=== PATIENT | male | born 1985 | race Caucasian/White ===

== ENCOUNTER 2019-06-26 14:40 | Emergency (ER) | payer SELFPAY ==
[~2019-06-26] VITALS: Ht 175.3 cm; Wt 61.2 kg
[2019-06-26 14:42] VITALS: BP 146/80
--- NOTE | 2019-06-26 14:42 | NUR ---
PT BIBRA FROM STREET C/O BIZARRE BEHAVIOR AND METH USE. PT IS AAOX3, NOT IN RESPIRATORY DISTRESS ,V/S STABLE, KEPT RESTED AND COMFORTABLE, WILL CONTINUE TO MONITOR.
--- NOTE | 2019-06-26 15:27 | NUR ---
Patient given written and verbal discharge instructions. Patient verbalizes understanding of instructions. Patient is ambulatory with steady gait. Refuses offer of longterm placement. Patient given list of available shelters in surrounding area.
== END 2019-06-26 15:31 | disposition home or self-care (01) ==
LOC: ER 14:44
DX: R41.82 Altered mental status, unspecified (principal); Z59.0 Homelessness

== ENCOUNTER 2019-11-07 10:29 | Emergency (ER) | payer MEDICAID ==
[~2019-11-07] VITALS: Ht 182.9 cm; Wt 66.7 kg
--- NOTE | 2019-11-07 10:30 | NUR ---
PT BIB SELF C/O SI "I WANT TO RUN THRU TRAFFIC." PT IS AAOX3, NOT IN RESPIRATORY DISTRESS, V/S STABLE, KEPT RESTED AND COMFORTABLE. WILL CONTINUE TO MONITOR.
--- NOTE | 2019-11-07 10:36 | NUR ---
SEEN AND EXAMINED BY .
--- NOTE | 2019-11-07 10:37 | NUR ---
SITTER AT BEDSIDE.
--- NOTE | 2019-11-07 10:38 | NUR ---
URINE SPECIMEN COLLECTED AND SENT TO LAB.
--- NOTE | 2019-11-07 10:38 | NUR ---
called security for wanding
[2019-11-07 10:59] LABS: APPEARANCE,URINE Clear (CLEAR); BILIRUBIN,URINE Negative (NEGATIVE); BLOOD, URINE Negative Ery/uL (NEGATIVE); COLOR,URINE Yellow (YELLOW); KETONES,URINE Negative (NEGATIVE); LEUKOCYTE ESTERASE ,URINE Negative (NEGATIVE); NITRITE, URINE Negative (NEGATIVE); PH,URINE 5.5 (5.0-8.0); PROTEIN,URINE Negative (NEGATIVE); UGLUCOSE Negative (NEGATIVE); UROBILINOGEN,URINE 0.2 EU/dL (0.2)
[2019-11-07 11:00] LABS: BASOPHILS % (AUTO) 0.4 % (0.0-2.0); EOSINOPHILS % (AUTO) 2.1 % (0.0-6.0); HEMATOCRIT 38 % (39-51); HEMOGLOBIN 12.7 g/dL (13.5-17.5); LYMPHOCYTES # (AUTO) 1.8 /CMM (0.8-4.8); LYMPHOCYTES % (AUTO) 25.6 % (20.0-44.0); MEAN CORPUSCULAR HGB CONC 34 g/dl (31.0-36.0); MEAN CORPUSCULAR VOLUME 87 fL (80-96); MONOCYTES # (AUTO) 0.4 /CMM (0.1-1.30); MONOCYTES % (AUTO) 6.5 % (2.0-12.0); NEUTROPHILS # (AUTO) 4.5 /CMM (1.8-8.9); NEUTROPHILS % (AUTO) 65.4 % (43.0-81.0); PLATELET COUNT (AUTO) 247 /CMM (150-450); RED BLOOD CELL COUNT(AUTO) 4.31 MIL/uL (4.5-6.0); WHITE BLOOD COUNT (AUTO) 6.9 K/uL (4.3-11.0)
[2019-11-07 11:06] LABS: CALCIUM, SERUM 9.2 mg/dL (8.5-10.1); CARBON DIOXIDE 28 mmol/L (21-32); CHLORIDE 104 mmol/L (98-107); CREATININE 0.8 mg/dL (0.6-1.3); GLUCOSE 83 mg/dL (74-106); SODIUM SERUM 140 mmol/L (136-145); UREA NITROGEN, BLOOD 11 mg/dL (7-18)
[2019-11-07 11:11] LABS: ALANINE AMINOTRANSFERASE 23 U/L (12-78); ALBUMIN 4.3 g/dL (3.4-5.0); ALCOHOL, BLOOD < 3 mg/dL (0-0); ALKALINE PHOSPHATASE 74 U/L (46-116); ASPARTATE AMINOTRANSFERASE 12 U/L (15-37); BILIRUBIN,DIRECT 0.1 mg/dL (0.0-0.2); BILIRUBIN,TOTAL 0.3 mg/dL (0.2-1.0); TOTAL PROTEIN, SERUM 7.5 g/dL (6.4-8.2)
[2019-11-07 11:12] LABS: ACETAMINOPHEN < 2 ug/ml (10-30); SALICYLATE 2.7 mg/dL (2.8-20.0)
--- NOTE | 2019-11-07 11:39 | NUR ---
MARIO received a call from ED CRN Gener requesting voluntary psychiatric hospitalization for the pt. MARIO conducted chart review and called Eugene at [facility] to initiate voluntary hospitalization for the pt. MARIO faxed clinicals to [facility] intake dept.
--- NOTE | 2019-11-07 13:50 | NUR ---
PANTS BUSHELER reached out to Penny at [facility] intake for an update. Per Penny, pt has been accepted at [facility] [address] Lopez/Rahul. Number for report is [phone]. Per Penny, pt's temperature needs to be checked prior to giving report. ED has been updated.
--- NOTE | 2019-11-07 16:20 | NUR ---
[facility] CALLED. PROVIDED 1929 ETA.
--- NOTE | 2019-11-07 16:23 | NUR ---
REPORT GIVEN TO RAMA AT [facility]. AWAITING TRANSPORT AMBULANCE.
--- NOTE | 2019-11-07 19:31 | NUR ---
CALLED [facility] FOR TRANSPORT TO [facility]. ETA 2100.
--- NOTE | 2019-11-07 21:22 | NUR ---
REPORT GIVEN TO [facility]
--- NOTE | 2019-11-07 21:39 | NUR ---
pt was picked up by shelbi and was transferred to [facility] in stable condition. all belongings were picked up ,
[2019-11-07 23:00] VITALS: BP 132/75
== END 2019-11-07 23:01 | disposition home or self-care (01) ==
LOC: ER 10:31
DX: R45.851 Suicidal ideations (principal); F29 Unspecified psychosis not due to a substance or known physiological condition; Z60.2 Problems related to living alone
CPT/HCPCS: 36415; 80048; 80076; 80305; 80307; 80329; 81001; 85025; 99285; G0480; 81000-TC

== ENCOUNTER 2019-11-19 21:30 | Emergency (ER) | payer MEDICAID ==
[~2019-11-19] VITALS: Ht 185.4 cm; Wt 77.1 kg
--- NOTE | 2019-11-20 01:10 | NUR ---
PT CAME TO THE ED C/O SI W/ A PLAN TO CUT WRIST. DENIES HI. PT AAOX4, VSS, RESPIRATIONS EVEN AND UNLABORED ON RA W/ NAD NOTED. PT CHANGED INTO GOWN, BELONGINGS PLACED TO LOCKER, AND SUICIDE PRECAUTIONS IMPLEMENTED. SITTER AT BEDSIDE FOR SAFETY
--- NOTE | 2019-11-20 01:20 | NUR ---
urine collected. sent to lab
[2019-11-20 01:45] LABS: BASOPHILS % (AUTO) 0.5 % (0.0-2.0); EOSINOPHILS % (AUTO) 3.9 % (0.0-6.0); HEMATOCRIT 38 % (39-51); HEMOGLOBIN 12.6 g/dL (13.5-17.5); LYMPHOCYTES # (AUTO) 3.1 /CMM (0.8-4.8); LYMPHOCYTES % (AUTO) 38.8 % (20.0-44.0); MEAN CORPUSCULAR HGB CONC 33 g/dl (31.0-36.0); MEAN CORPUSCULAR VOLUME 87 fL (80-96); MONOCYTES # (AUTO) 0.6 /CMM (0.1-1.30); NEUTROPHILS % (AUTO) 49.8 % (43.0-81.0); PLATELET COUNT (AUTO) 191 /CMM (150-450); RED BLOOD CELL COUNT(AUTO) 4.35 MIL/uL (4.5-6.0); WHITE BLOOD COUNT (AUTO) 8.1 K/uL (4.3-11.0)
[2019-11-20 01:57] LABS: APPEARANCE,URINE Clear (CLEAR); BILIRUBIN,URINE Negative (NEGATIVE); BLOOD, URINE Negative Ery/uL (NEGATIVE); COLOR,URINE Yellow (YELLOW); KETONES,URINE Negative (NEGATIVE); LEUKOCYTE ESTERASE ,URINE Negative (NEGATIVE); NITRITE, URINE Negative (NEGATIVE); PH,URINE 5.5 (5.0-8.0); PROTEIN,URINE Negative (NEGATIVE); UGLUCOSE Negative (NEGATIVE); UROBILINOGEN,URINE 0.2 EU/dL (0.2)
[2019-11-20 02:09] LABS: CALCIUM, SERUM 8.9 mg/dL (8.5-10.1); CREATININE 0.7 mg/dL (0.6-1.3); POTASSIUM 4.1 mmol/L (3.5-5.1)
[2019-11-20 02:15] LABS: ALBUMIN 4.1 g/dL (3.4-5.0); BILIRUBIN,DIRECT 0.1 mg/dL (0.0-0.2); BILIRUBIN,TOTAL 0.2 mg/dL (0.2-1.0); SALICYLATE 2.9 mg/dL (2.8-20.0); TOTAL PROTEIN, SERUM 7.4 g/dL (6.4-8.2)
--- NOTE | 2019-11-20 03:27 | NUR ---
PT RESTING COMFORTABLY IN BED. VSS. NO AUCTE DISTRESS NOTED. SITTER AT BEDSIDE FOR SAFETY
--- NOTE | 2019-11-20 05:11 | NUR ---
CLINICAL FAXED TO [facility] FOR VOLUNTARY PSYCH ADMISSION.
--- NOTE | 2019-11-20 05:58 | NUR ---
PT ASLEEP IN BED. VSS. NO AUCTE DISTRESS NOTED. SITTER AT BEDSIDE FOR SAFETY
--- NOTE | 2019-11-20 06:56 | NUR ---
ACCEPTED AT [facility]. WILL CALL BACK @ [phone] FOR ROOM ASSIGNMENT
--- NOTE | 2019-11-20 07:32 | NUR ---
Patient asleep but arousable no s/s of distress @ this time sitter @ bedside
--- NOTE | 2019-11-20 08:40 | NUR ---
FOOD TRAY PROVIDED.
--- NOTE | 2019-11-20 10:40 | NUR ---
CALLED [facility] [phone] STILL NO BEDS. PLEASE CHECK BACK AFTER [phone]
--- NOTE | 2019-11-20 13:50 | NUR ---
PT STATED HE IS NOT SUICIDAL AND WANTS TO BE DISCHARGED. AWARE
--- NOTE | 2019-11-20 14:00 | NUR ---
Patient given written and verbal discharge instructions. Patient verbalizes understanding of instructions. Patient is ambulatory with steady gait. Refuses offer of detention placement. Patient given list of available shelters in surrounding area.
[2019-11-20 14:35] VITALS: BP 108/64
== END 2019-11-20 13:58 | disposition home or self-care (01) ==
LOC: ER 21:30
DX: R45.851 Suicidal ideations (principal); Z60.2 Problems related to living alone
CPT/HCPCS: 36415; 80048; 80076; 80305; 80307; 80329; 81001; 85025; 99285; G0480; 81000-TC

== ENCOUNTER 2019-11-20 16:12 | Emergency (ER) | payer MEDICAID ==
[~2019-11-20] VITALS: Ht 180.3 cm; Wt 56.7 kg
--- NOTE | 2019-11-20 16:12 | NUR ---
PT BIB SELF C/O SI "I WANT TO CUT MY WRIST" PT IS AAOX4, NOT IN RESPIRATORY DISTRESS, V/S STABLE, KEPT RESTED AND COMFORTABLE. SITTER AT BEDSIDE. WILL CONTINUE TO MONITOR.
--- NOTE | 2019-11-20 16:20 | NUR ---
SEEN AND EXAMINED BY .
--- NOTE | 2019-11-20 16:30 | NUR ---
SECURITY AT BEDSIDE FOR WANDING.
[2019-11-20 16:45] LABS: BASOPHILS % (AUTO) 0.3 % (0.0-2.0); EOSINOPHILS % (AUTO) 3.8 % (0.0-6.0); HEMATOCRIT 42 % (39-51); HEMOGLOBIN 13.7 g/dL (13.5-17.5); LYMPHOCYTES # (AUTO) 2.4 /CMM (0.8-4.8); LYMPHOCYTES % (AUTO) 31.9 % (20.0-44.0); MEAN CORPUSCULAR HGB CONC 33 g/dl (31.0-36.0); MEAN CORPUSCULAR VOLUME 87 fL (80-96); MONOCYTES # (AUTO) 0.5 /CMM (0.1-1.30); MONOCYTES % (AUTO) 6.6 % (2.0-12.0); NEUTROPHILS # (AUTO) 4.3 /CMM (1.8-8.9); NEUTROPHILS % (AUTO) 57.4 % (43.0-81.0); PLATELET COUNT (AUTO) 234 /CMM (150-450); RED BLOOD CELL COUNT(AUTO) 4.76 MIL/uL (4.5-6.0); WHITE BLOOD COUNT (AUTO) 7.5 K/uL (4.3-11.0)
[2019-11-20 16:46] LABS: APPEARANCE,URINE Clear (CLEAR); BILIRUBIN,URINE Negative (NEGATIVE); BLOOD, URINE Negative Ery/uL (NEGATIVE); COLOR,URINE Yellow (YELLOW); KETONES,URINE Negative (NEGATIVE); LEUKOCYTE ESTERASE ,URINE Negative (NEGATIVE); NITRITE, URINE Negative (NEGATIVE); PROTEIN,URINE Negative (NEGATIVE); UGLUCOSE Negative (NEGATIVE); UROBILINOGEN,URINE 0.2 EU/dL (0.2)
[2019-11-20 16:52] LABS: CREATININE 0.9 mg/dL (0.6-1.3); POTASSIUM 4.2 mmol/L (3.5-5.1)
[2019-11-20 16:58] LABS: ALBUMIN 4.9 g/dL (3.4-5.0); BILIRUBIN,DIRECT 0.1 mg/dL (0.0-0.2); BILIRUBIN,TOTAL 0.3 mg/dL (0.2-1.0); TOTAL PROTEIN, SERUM 8.6 g/dL (6.4-8.2)
--- NOTE | 2019-11-20 19:16 | NUR ---
CLINICALS FAXED TO [facility].
[2019-11-21 01:25] LABS: SALICYLATE 3.2 mg/dL (2.8-20.0)
--- NOTE | 2019-11-21 01:31 | NUR ---
CLINICAL FAXED TO [facility] FOR VOLUNTARY PSYCH ADMISSION.
[2019-11-21 01:33] LABS: ACETAMINOPHEN < 2 ug/ml (10-30)
--- NOTE | 2019-11-21 03:30 | NUR ---
PT ASLEEP. VSS.
--- NOTE | 2019-11-21 04:43 | NUR ---
PT RESTING COMFORTABLY. PROVIDED WITH WATER.
--- NOTE | 2019-11-21 05:29 | NUR ---
PT IN BED, AWAKE. VSS.
--- NOTE | 2019-11-21 07:02 | NUR ---
PT REMAINS ASLEEP. PROVIDED WITH WATER.
--- NOTE | 2019-11-21 07:22 | NUR ---
ASSESSED PT ON BED ASLEEP BUT EASILY AROUSABLE. PT IS AAOX3, NOT IN RESPIRATORY DISTRESS, V/S STABLE, KEPT RESTED AND COMFORTABLE. WILL CONTINUE TO MONITOR.
--- NOTE | 2019-11-21 07:33 | NUR ---
FOOD TRAY PROVIDED.
--- NOTE | 2019-11-21 08:37 | NUR ---
NURSE RESEARCH AT BEDSIDE FOR EVAL.
--- NOTE | 2019-11-21 09:47 | NUR ---
8:45am: Piano Regulator Inspector met with the patient. Patient was alert and orientated x4. Patient was laying down and propped up to make eye contact with this SW. Patient was responsive to speak with this SW. Prior to admission patient stated that he was living at [facility] and patient stated that his plan is not to return to [facility] but to return to the [facility]. Patient stated no source of income but patient would like to receive resources for food stamps. Patient reports no history of alcohol/drug use. Patient has suicidal ideation to "cut my wrist". When patient was asked with what object patient responded with "a razor, easy to find". SW will provide resources including heigiene, retirement, food, and other mental health options. SW also resent clinicals to Marta Russo at . This SW is awaiting confirmation from Marta Russo and SW included on the Fax Sheet to contact the Emergency Department if this SW cannot be contacted , this SW was in a morning meeting. SW to remain available for all needs.
--- NOTE | 2019-11-21 12:41 | NUR ---
[facility]OT ACCEPTED AT [facility] [phone] NOLAN PER GÓMEZ CALL IN [phone]
--- NOTE | 2019-11-21 13:00 | NUR ---
CALLED [facility] [phone] ETA IS [phone]
--- NOTE | 2019-11-21 13:37 | NUR ---
REPORT GIVEN TO [facility].
[2019-11-21 13:43] VITALS: BP 118/58
--- NOTE | 2019-11-21 13:43 | NUR ---
REPORT GIVEN TO EMT FOR PT TRANSFER TO [facility].
== END 2019-11-21 13:44 ==
LOC: ER 16:15
DX: R45.851 Suicidal ideations (principal); F17.200 Nicotine dependence, unspecified, uncomplicated; Z59.0 Homelessness
CPT/HCPCS: 36415 ×2; 80048; 80076; 80305; 80307; 80329; 81001; 85025; 99285; G0480; 81000-TC

== ENCOUNTER 2019-12-21 17:33 | Emergency (ER) | payer MEDICAID ==
[~2019-12-21] VITALS: Ht 185.4 cm; Wt 81.6 kg
--- NOTE | 2019-12-21 17:47 | NUR ---
Dayo galindo in ED - 12/21/[address] schmitz at [facility] for dawna.
--- NOTE | 2019-12-21 17:53 | NUR ---
pt self presents to ed ambulatory to er bed 15 c/o depression, suicidal ideation w/ plan to "cut wrist." pt is cooperative to staff. stable vital. awaiting md toney.
--- NOTE | 2019-12-21 17:56 | NUR ---
dr schmitz at bedside for eval.
--- NOTE | 2019-12-21 18:03 | NUR ---
labview programmer at bedside for blood draw.
[2019-12-21 18:07] LABS: BASOPHILS % (AUTO) 0.3 % (0.0-2.0); EOSINOPHILS % (AUTO) 1.2 % (0.0-6.0); HEMATOCRIT 42 % (39-51); HEMOGLOBIN 13.9 g/dL (13.5-17.5); LYMPHOCYTES # (AUTO) 1.2 /CMM (0.8-4.8); LYMPHOCYTES % (AUTO) 13.5 % (20.0-44.0); MEAN CORPUSCULAR HGB CONC 33 g/dl (31.0-36.0); MEAN CORPUSCULAR VOLUME 87 fL (80-96); MONOCYTES # (AUTO) 0.4 /CMM (0.1-1.30); MONOCYTES % (AUTO) 5.1 % (2.0-12.0); NEUTROPHILS # (AUTO) 6.9 /CMM (1.8-8.9); NEUTROPHILS % (AUTO) 79.9 % (43.0-81.0); PLATELET COUNT (AUTO) 243 /CMM (150-450); RED BLOOD CELL COUNT(AUTO) 4.79 MIL/uL (4.5-6.0); WHITE BLOOD COUNT (AUTO) 8.7 K/uL (4.3-11.0)
[2019-12-21 18:10] LABS: APPEARANCE,URINE Clear (CLEAR); BILIRUBIN,URINE SMALL (NEGATIVE); BLOOD, URINE Negative Ery/uL (NEGATIVE); COLOR,URINE Yellow (YELLOW); KETONES,URINE Negative (NEGATIVE); LEUKOCYTE ESTERASE ,URINE Negative (NEGATIVE); NITRITE, URINE Negative (NEGATIVE); PH,URINE 6.5 (5.0-8.0); PROTEIN,URINE Negative (NEGATIVE); UGLUCOSE Negative (NEGATIVE); UROBILINOGEN,URINE 0.2 EU/dL (0.2)
[2019-12-21 18:17] LABS: CALCIUM, SERUM 8.9 mg/dL (8.5-10.1); CARBON DIOXIDE 29 mmol/L (21-32); CHLORIDE 104 mmol/L (98-107); CREATININE 1.1 mg/dL (0.6-1.3); GLUCOSE 200 mg/dL (74-106); POTASSIUM 4.1 mmol/L (3.5-5.1); SODIUM SERUM 143 mmol/L (136-145); UREA NITROGEN, BLOOD 20 mg/dL (7-18)
[2019-12-21 18:24] LABS: ALANINE AMINOTRANSFERASE 18 U/L (12-78); ALBUMIN 4.3 g/dL (3.4-5.0); ALKALINE PHOSPHATASE 64 U/L (46-116); ASPARTATE AMINOTRANSFERASE 13 U/L (15-37); BILIRUBIN,DIRECT 0.1 mg/dL (0.0-0.2); BILIRUBIN,TOTAL 0.4 mg/dL (0.2-1.0); TOTAL PROTEIN, SERUM 7.6 g/dL (6.4-8.2)
[2019-12-21 18:25] LABS: ACETAMINOPHEN < 10 ug/ml (10-30); ALCOHOL, BLOOD < 3 mg/dL (0-0); SALICYLATE 2.1 mg/dL (2.8-20.0)
--- NOTE | 2019-12-21 19:34 | NUR ---
ASSUMED CARE FOR THIS PT. PT AAOX4, VSS, RESPIRATIONS EVEN AND UNLABORED ON RA W/ NAD NOTED. PT CONNECTED TO THE MONITOR AND POX. SUICIDE PRECAUTIONS OBSERVED. SITTER AT BEDSIDE FOR SAFETY.
--- NOTE | 2019-12-22 04:29 | NUR ---
PT RESTING COMFORTABLY IN BED. VSS. NO ACUTE DISTRESS NOTED. SITTER AT BEDSIDE FOR SAFETY. CALL LIGHT WITHIN REACH
--- NOTE | 2019-12-22 05:22 | NUR ---
Patient is resting comfortably in bed with eyes closed. Easily aroused. VSS
--- NOTE | 2019-12-22 06:17 | NUR ---
Patient is resting comfortably in bed with eyes closed. Easily aroused. VSS
[2019-12-22 06:44] VITALS: BP 91/51
--- NOTE | 2019-12-22 09:17 | NUR ---
Received a call from [facility] ([facility] intake) patient is accepted at [facility] sup [phone] Lopez accepting .
--- NOTE | 2019-12-22 09:27 | NUR ---
report given to yu FLORES for glenys
--- NOTE | 2019-12-22 09:33 | NUR ---
CALLED [facility] ETA IS 1100
--- NOTE | 2019-12-22 11:20 | NUR ---
TRANSFERED TO [facility] IN STABLE COPNDITION.
== END 2019-12-22 11:28 ==
LOC: ER 17:33
DX: R45.851 Suicidal ideations (principal); F12.10 Cannabis abuse, uncomplicated; F20.9 Schizophrenia, unspecified; Z59.0 Homelessness
CPT/HCPCS: 36415; 80048; 80076; 80305; 80307; 80329; 81001; 85025; 99285; G0480; 81000-TC